=== PATIENT | female | born 1930 | race Caucasian/White ===

== ENCOUNTER 2019-08-24 09:11 | Inpatient (IN) ==
[2019-08-24] MEDS ORDERED: Pantoprazole 40 MG VIAL IVP ONE (09:48)
[2019-08-24] MEDS ORDERED: 0.9 % Sodium Chloride 1,000 ML IV ONE ×2 (09:48→14:29)
[2019-08-24 11:18] LABS: Hemoglobin 10.4 g/dL (11.5-15.4); Mean Corpuscular HGB Conc 33.5 g/dL (31.6-35.5); Mean Corpuscular Hemoglobin 29.1 pg (28.0-33.3); Mean Corpuscular Volume 86.6 fL (83.0-100.0); Mean Platelet Volume 8.8 fL (9.4-12.4); Monocytes # 0.1 K/mcL (0.0-1.3); Platelet Count 335 K/mcL (140-400); Red Blood Count 3.58 M/mcL (3.82-4.97); Red Cell Distribution Width 13.8 % (11.5-14.5); White Blood Count 7.2 K/mcL (4.3-11.1)
[2019-08-24 11:34] LABS: Bilirubin,Total 0.3 mg/dL (0.3-1.0); Calcium 8.8 mg/dL (8.6-10.3); Globulin 2.9 g/dL (2.4-3.5); Magnesium 1.3 mg/dL (1.6-2.6); Potassium 4.1 mEq/L (3.5-5.1); Total Protein 5.9 g/dL (6.4-8.9)
[2019-08-24 11:37] LABS: INR 1.1; Prothrombin Time 12.1 Seconds (9.4-12.1)
[2019-08-24 11:40] LABS: Activated Partial Thrombo Time 27.3 Seconds (26.0-36.0)
[2019-08-24] MEDS ORDERED: Isovue-370 500 ML BOTTLE IVP ONE (11:59)
[2019-08-24 12:04] LABS: Platelet Estimate Normal (Normal)
[2019-08-24 12:06] LABS: Lymphocytes # 0.3 K/mcL (0.6-4.6); Neutrophils # 6.8 K/mcL (1.6-8.9)
[2019-08-24 12:07] LABS: Reactive Lymphocytes Present (Not Present)
[2019-08-24] MEDS ORDERED: Piperacillin/Tazobactam 3.375 GM in Water for inj. (sterile) 20 ML IVP ONE (14:39)
[2019-08-24] MEDS ORDERED: Ondansetron 4 MG/2 ML VIAL IVP PRN (16:21)
[2019-08-24] MEDS ORDERED: *HR* HYDROcodone/Acet 5/325 mg TABLET PO PRN (16:21)
[2019-08-24] MEDS ORDERED: Ringers Solution, Lactated 1,000 ML IVC SCH ×2 (16:30→17:00)
[2019-08-24] MEDS ORDERED: Dextrose Gel 15 GM/37.5 ML TUBE PO PRN ×2 (16:46)
[2019-08-24] MEDS ORDERED: *HR* Dextrose 50 % in Water (Syg) 50 ML SYRINGE IVP PRN (16:46)
[2019-08-24] MEDS ORDERED: D5% in Water 1,000 ML IVC PRN (16:46)
[2019-08-24] MEDS ORDERED: IBRANCE 100 MG PO SCH (17:00)
[2019-08-24 18:44] LABS: Bilirubin,Urine Negative (Negative); Blood,Urine Small (Negative); Clarity,Urine Clear (Clear); Color,Urine Yellow (Yellow); Glucose,Urine (UA) 100 mg/dL (Normal); Ketones,Urine Negative (Negative); Leukocyte Esterase,Urine Moderate (Negative); Nitrite,Urine Negative (Negative); Protein,Urine Negative (Neg-Trace); Specific Gravity,Urine > 1.030 (1.010-1.025); Urobilinogen,Urine Normal (Normal)
[2019-08-24 18:46] LABS: Bacteria,Urine None Seen per hpf (None-Few); Hyaline Casts,Urine None Seen per lpf (None-Few); Squamous Epithelial Cell,Urine Many per lpf (None-Few)
[2019-08-24 18:48] LABS: Hematocrit 28.9 % (35.3-44.9); Hemoglobin 9.7 g/dL (11.5-15.4)
[2019-08-24] MEDS: Insulin LISPRO 300 UNITS/3 ML VIAL SQ SCH (20:14)
[2019-08-24] MEDS: *HR* OxyCODONE/APAP 5/325 TABLET PO PRN (20:32)
[2019-08-24] MEDS: Mirtazapine 15 MG TABLET PO SCH (20:32)
[2019-08-24] MEDS: Sennosides/Docusate Sodium TABLET PO SCH (20:33)
[2019-08-24] MEDS ORDERED: cloNIDine HCl 0.1 MG TABLET PO SCH (23:45)
[2019-08-25] MEDS: Pantoprazole 40 MG in 0.9 % Sodium Chloride Mini Bag 100 ML IVC SCH ×2 (00:26→05:01)
[2019-08-25] MEDS: Piperacillin/Tazobactam 3.375 GM in 0.9 % Sodium Chloride Mini Bag 100 ML IVPB SCH ×3 (00:26→17:21)
[2019-08-25] MEDS: Insulin LISPRO 300 UNITS/3 ML VIAL SQ SCH ×4 (00:43→20:10)
[2019-08-25 01:58] LABS: Hematocrit 28.1 % (35.3-44.9); Hemoglobin 9.5 g/dL (11.5-15.4)
[2019-08-25 04:29] LABS: Hematocrit 27.3 % (35.3-44.9); Hemoglobin 8.8 g/dL (11.5-15.4)
[2019-08-25 04:30] LABS: Hematocrit 26.8 % (35.3-44.9); Mean Corpuscular HGB Conc 33.6 g/dL (31.6-35.5); Mean Corpuscular Hemoglobin 28.8 pg (28.0-33.3); Mean Corpuscular Volume 85.6 fL (83.0-100.0); Mean Platelet Volume 8.5 fL (9.4-12.4); Platelet Count 304 K/mcL (140-400); Red Blood Count 3.13 M/mcL (3.82-4.97); White Blood Count 6.8 K/mcL (4.3-11.1)
[2019-08-25 04:36] LABS: INR 1.1; Prothrombin Time 12.1 Seconds (9.4-12.1)
[2019-08-25 04:51] LABS: Albumin 2.8 g/dL (3.5-5.7); Albumin/Globulin Ratio 1.1 (1.1-2.2); Bilirubin,Direct 0.1 mg/dL (0.0-0.2); Bilirubin,Indirect 0.2 mg/dL (0.0-1.0); Bilirubin,Total 0.3 mg/dL (0.3-1.0); Globulin 2.6 g/dL (2.4-3.5); Total Protein 5.4 g/dL (6.4-8.9)
[2019-08-25 04:52] LABS: BUN/Creatinine Ratio 20 (6-26); Blood Urea Nitrogen 16 mg/dL (8-23); Carbon Dioxide 22 mEq/L (23-29); Chloride 107 mEq/L (98-107); Glucose 47 mg/dL (70-105); Magnesium 2.3 mg/dL (1.6-2.6); Osmolality,Calculated 286 (280-300); Phosphorous 3.1 mg/dL (2.7-4.5); Potassium 3.4 mEq/L (3.5-5.1); Sodium 139 mEq/L (136-145); eGFR For African Americans > 60 (> 60); eGFR For Non-African Americans > 60 (> 60)
[2019-08-25] MEDS: *HR* OxyCODONE/APAP 5/325 TABLET PO PRN ×3 (04:57→23:45)
[2019-08-25] MEDS: Sennosides/Docusate Sodium TABLET PO SCH ×2 (07:52→20:09)
[2019-08-25] MEDS: Letrozole 2.5 MG TABLET PO SCH (07:53)
[2019-08-25] MEDS ORDERED: *HR* FentaNYL PATCH 12 MCG PATCH TD SCH (09:00)
[2019-08-25] MEDS ORDERED: Ringers Solution, Lactated 1,000 ML IVC SCH (11:45)
[2019-08-25] MEDS ORDERED: 0.9 % Sodium Chloride 250 ML ONE (13:40)
[2019-08-25] MEDS: Mirtazapine 15 MG TABLET PO SCH (17:20)
[2019-08-25] MEDS ORDERED: Pantoprazole 40 MG VIAL IVP SCH (18:00)
[2019-08-25] MEDS: IBRANCE 100 MG PO SCH (20:09)
[2019-08-25] MEDS ORDERED: *HR* Labetalol 20 MG/4 ML SYRINGE IVP ONE (23:51)
[2019-08-26] MEDS: Insulin LISPRO 300 UNITS/3 ML VIAL SQ SCH ×3 (00:25→11:46)
[2019-08-26] MEDS: Piperacillin/Tazobactam 3.375 GM in 0.9 % Sodium Chloride Mini Bag 100 ML IVPB SCH ×4 (00:25→23:39)
[2019-08-26 02:49] LABS: Hematocrit 36.1 % (35.3-44.9); Hematocrit 36.2 % (35.3-44.9); Mean Corpuscular HGB Conc 33.1 g/dL (31.6-35.5); Mean Corpuscular Hemoglobin 28.2 pg (28.0-33.3); Mean Platelet Volume 8.4 fL (9.4-12.4); Platelet Count 307 K/mcL (140-400); Red Blood Count 4.26 M/mcL (3.82-4.97); Red Cell Distribution Width 14.4 % (11.5-14.5); White Blood Count 6.1 K/mcL (4.3-11.1)
[2019-08-26 02:50] LABS: Hemoglobin 12.3 g/dL (11.5-15.4)
[2019-08-26 03:10] LABS: BUN/Creatinine Ratio 15 (6-26); Blood Urea Nitrogen 12 mg/dL (8-23); Calcium 8.5 mg/dL (8.6-10.3); Carbon Dioxide 21 mEq/L (23-29); Chloride 107 mEq/L (98-107); Glucose 69 mg/dL (70-105); Magnesium 1.8 mg/dL (1.6-2.6); Osmolality,Calculated 288 (280-300); Potassium 4.2 mEq/L (3.5-5.1); Sodium 140 mEq/L (136-145); eGFR For African Americans > 60 (> 60); eGFR For Non-African Americans > 60 (> 60)
[2019-08-26] MEDS ORDERED: *HR* Metoprolol 5 MG/5 ML VIAL IVP ONE (04:50)
[2019-08-26] MEDS ORDERED: 0.9 % Sodium Chloride 500 ML IVC ONE (04:58)
[2019-08-26] MEDS: Pantoprazole 40 MG in 0.9 % Sodium Chloride Mini Bag 100 ML IVC SCH ×3 (05:23→19:49)
[2019-08-26 06:45] LABS: Hemoglobin 12.9 g/dL (11.5-15.4)
[2019-08-26] MEDS: *HR* OxyCODONE/APAP 5/325 TABLET PO PRN ×2 (08:59→16:57)
[2019-08-26] MEDS: amLODIPine 5 MG TABLET PO SCH (09:00)
[2019-08-26] MEDS: Letrozole 2.5 MG TABLET PO SCH (09:00)
[2019-08-26] MEDS: Pantoprazole 40 MG VIAL IVP SCH ×2 (09:01→21:07)
[2019-08-26] MEDS: Sennosides/Docusate Sodium TABLET PO SCH ×2 (09:02→21:07)
[2019-08-26 10:35] LABS: Hematocrit 36.6 % (35.3-44.9); Hemoglobin 12.4 g/dL (11.5-15.4)
[2019-08-26] MEDS ORDERED: Insulin LISPRO 300 UNITS/3 ML VIAL SQ SCH ×2 (12:45→13:57)
[2019-08-26] MEDS ORDERED: IBRANCE 100 MG PO SCH (13:00)
[2019-08-26] MEDS ORDERED: Dextrose Gel 15 GM/37.5 ML TUBE PO ONE (16:55)
[2019-08-26] MEDS: Mirtazapine 15 MG TABLET PO SCH (16:58)
[2019-08-26] MEDS ORDERED: Gadolinium Contrast Agent (WT Based) IV PRN (17:50)
[2019-08-26] MEDS: IBRANCE 100 MG PO SCH (19:49)
[2019-08-27] MEDS: *HR* OxyCODONE/APAP 5/325 TABLET PO PRN ×3 (00:41→18:59)
[2019-08-27] MEDS ORDERED: Haloperidol Lactate 5 MG/ML VIAL IVP ONE (03:09)
[2019-08-27] MEDS ORDERED: *HR* Promethazine 25 MG/ML VIAL IVP ONE (03:09)
[2019-08-27 03:53] LABS: Hemoglobin 12.4 g/dL (11.5-15.4); Mean Corpuscular HGB Conc 33.5 g/dL (31.6-35.5); Mean Corpuscular Hemoglobin 28.7 pg (28.0-33.3); Mean Corpuscular Volume 85.6 fL (83.0-100.0); Mean Platelet Volume 8.4 fL (9.4-12.4); Platelet Count 265 K/mcL (140-400); Red Blood Count 4.32 M/mcL (3.82-4.97); Red Cell Distribution Width 14.6 % (11.5-14.5)
[2019-08-27 04:08] LABS: BUN/Creatinine Ratio 13 (6-26); Blood Urea Nitrogen 11 mg/dL (8-23); Calcium 8.3 mg/dL (8.6-10.3); Carbon Dioxide 23 mEq/L (23-29); Chloride 102 mEq/L (98-107); Glucose 126 mg/dL (70-105); Osmolality,Calculated 287 (280-300); Potassium 3.3 mEq/L (3.5-5.1); Sodium 138 mEq/L (136-145); eGFR For African Americans > 60 (> 60); eGFR For Non-African Americans > 60 (> 60)
[2019-08-27] MEDS ORDERED: *HR* Metoprolol 5 MG/5 ML VIAL IVP ONE ×3 (04:33→11:23)
[2019-08-27] MEDS: Piperacillin/Tazobactam 3.375 GM in 0.9 % Sodium Chloride Mini Bag 100 ML IVPB SCH (07:44)
[2019-08-27] MEDS: Pantoprazole 40 MG VIAL IVP SCH ×2 (07:44→21:34)
[2019-08-27] MEDS: Letrozole 2.5 MG TABLET PO SCH (07:44)
[2019-08-27] MEDS: amLODIPine 5 MG TABLET PO SCH (07:45)
[2019-08-27] MEDS: Sennosides/Docusate Sodium TABLET PO SCH ×2 (07:45→21:33)
[2019-08-27] MEDS ORDERED: *HR* LORazepam 2 MG/ML VIAL IVP ONE (08:50)
[2019-08-27] MEDS ORDERED: *HR* FentaNYL PATCH 12 MCG PATCH TD SCH (11:07)
[2019-08-27] MEDS: Acetaminophen 325 MG TABLET PO PRN (16:00)
[2019-08-27] MEDS: Mirtazapine 15 MG TABLET PO SCH (18:29)
[2019-08-28] MEDS: Acetaminophen 325 MG TABLET PO PRN (01:16)
[2019-08-28] MEDS: *HR* OxyCODONE/APAP 5/325 TABLET PO PRN ×4 (03:57→18:37)
[2019-08-28] MEDS: Lisinopril 20 MG TABLET PO SCH (10:00)
[2019-08-28] MEDS: amLODIPine 5 MG TABLET PO SCH (10:00)
[2019-08-28] MEDS: Letrozole 2.5 MG TABLET PO SCH (10:01)
[2019-08-28] MEDS: Sennosides/Docusate Sodium TABLET PO SCH ×2 (10:01→22:37)
[2019-08-28 11:11] LABS: Hematocrit 39.1 % (35.3-44.9); Hemoglobin 12.6 g/dL (11.5-15.4); Mean Corpuscular HGB Conc 32.2 g/dL (31.6-35.5); Mean Corpuscular Hemoglobin 28.3 pg (28.0-33.3); Mean Corpuscular Volume 87.9 fL (83.0-100.0); Mean Platelet Volume 8.3 fL (9.4-12.4); Platelet Count 268 K/mcL (140-400); Red Blood Count 4.45 M/mcL (3.82-4.97); Red Cell Distribution Width 14.6 % (11.5-14.5); White Blood Count 4.1 K/mcL (4.3-11.1)
[2019-08-28 11:43] LABS: BUN/Creatinine Ratio 18 (6-26); Blood Urea Nitrogen 15 mg/dL (8-23); Calcium 8.3 mg/dL (8.6-10.3); Carbon Dioxide 21 mEq/L (23-29); Chloride 106 mEq/L (98-107); Glucose 133 mg/dL (70-105); Osmolality,Calculated 285 (280-300); Potassium 4.3 mEq/L (3.5-5.1); Sodium 136 mEq/L (136-145); eGFR For African Americans > 60 (> 60); eGFR For Non-African Americans > 60 (> 60)
[2019-08-28] MEDS: Mirtazapine 15 MG TABLET PO SCH (18:37)
[2019-08-29] MEDS: *HR* OxyCODONE/APAP 5/325 TABLET PO PRN ×4 (04:10→20:23)
[2019-08-29] MEDS: Letrozole 2.5 MG TABLET PO SCH (08:24)
[2019-08-29] MEDS: Lisinopril 20 MG TABLET PO SCH (08:24)
[2019-08-29] MEDS: amLODIPine 5 MG TABLET PO SCH (08:24)
[2019-08-29] MEDS: Sennosides/Docusate Sodium TABLET PO SCH ×2 (08:24→20:24)
[2019-08-29] MEDS: carvediloL 25 MG TABLET PO SCH ×2 (10:10→16:25)
[2019-08-29] MEDS ORDERED: *HR* FentaNYL PATCH 25 MCG PATCH TD SCH (12:00)
[2019-08-29] MEDS: Mirtazapine 15 MG TABLET PO SCH (19:10)
[2019-08-30 08:21] VITALS: BP 156/69
[2019-08-30] MEDS: *HR* OxyCODONE/APAP 5/325 TABLET PO PRN (10:08)
[2019-08-30] MEDS: Lisinopril 20 MG TABLET PO SCH (10:08)
[2019-08-30] MEDS: Sennosides/Docusate Sodium TABLET PO SCH (10:08)
[2019-08-30] MEDS: Letrozole 2.5 MG TABLET PO SCH (10:08)
[2019-08-30] MEDS: carvediloL 25 MG TABLET PO SCH ×2 (10:09→16:46)
[2019-08-30] MEDS: amLODIPine 5 MG TABLET PO SCH (10:09)
== END 2019-08-30 17:09 | DRG 871 ==
LOC: SUATTDRO → EMEROOARM 09:11 → 3ANU 09:11 → SUATTDRO 18:00 → 3ANU 20:03
PROVIDERS: ADMIT Internal Medicine; ATTEND Internal Medicine